=== PATIENT | female | born 1970 | race Two or more races ===

== ENCOUNTER 2023-02-28 12:02 | Outpatient (CLI) | payer OTHER ==
[~2023-02-28 12:02] MED LIST: DEPAKOTE ER500 MG; GLIMEPIRIDE4 MG; JANUMET 50-501 UDTAB; MEDROLPACK PO; SEROQUEL XR200 MG; SYNTHROID137 MCG; ZYRTEC10 MG PO
== END 2023-02-28 12:08 | disposition home or self-care (01) ==
LOC: RAD 12:02
PROVIDERS: ATTEND Orthopaedic Surgery
DX: M25.572 Pain in left ankle and joints of left foot (principal)

== ENCOUNTER 2023-10-18 12:23 | Emergency (ER) | payer OTHER ==
[~2023-10-18] VITALS: Ht 175.3 cm; Wt 98.9 kg
[2023-10-18] MEDS ORDERED: TRULICITY3 MG/0.5 M SQ (13:09)
[2023-10-18] MEDS ORDERED: INVEGA1.5 MG PO (13:10)
[2023-10-18] MEDS ORDERED: ACTOS15 MG PO (13:10)
== END 2023-10-18 13:42 | disposition home or self-care (01) ==
LOC: ER 12:24
DX: L02.222 Furuncle of back [any part, except buttock and flank] (principal); Z88.6 Allergy status to analgesic agent